=== PATIENT | female | born 1930 | race Two or more races ===

== ENCOUNTER 2016-05-05 16:08 | Inpatient (IN) | payer MEDICARE ==
[~2016-05-05] VITALS: Ht 157.5 cm; Wt 43.1 kg
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
--- NOTE | 2016-05-05 16:15 | NUR ---
URINE SAMPLE COLLECTED VIA STREIGHT IN/OUT MENDOZA CATHETER. PT TOLERATED PROCEDURE WELL. SAMPLE SEND TO LAB
[2016-05-05 16:35] LABS: APPEARANCE,URINE Clear (CLEAR); BILIRUBIN,URINE Negative (NEGATIVE); BLOOD, URINE Negative Ery/uL (NEGATIVE); COLOR,URINE Yellow (YELLOW); KETONES,URINE Negative (NEGATIVE); LEUKOCYTE ESTERASE ,URINE Negative (NEGATIVE); NITRITE, URINE Positive (NEGATIVE); PROTEIN,URINE Negative (NEGATIVE); UGLUCOSE Negative (NEGATIVE); UROBILINOGEN,URINE 0.2 EU/dL (0.2)
[2016-05-05] MEDS ORDERED: CEPH-569 PO (16:46)
--- NOTE | 2016-05-05 16:47 | NUR ---
CALLED NURSING SUP. FOR GPS BED
[2016-05-05 16:49] LABS: ADD URINE CULTURE NO; BACTERIA,URINE Rare /HPF (None Seen); RBC,URINE 0-2 /HPF (0-2); WBC,URINE 0-2 /HPF (0-3)
[2016-05-05 16:50] LABS: SQUAMOUS EPITHELIAL CELL,UR Rare /HPF (None Seen)
[2016-05-05] MEDS ORDERED: NITROFURANTOIN/NITROFURAN MAC 100 MG CAPSULE PO ONE (17:00)
[2016-05-05] MEDS ORDERED: NITROFURANTOIN/NITROFURAN MAC 100 MG CAPSULE ONE (17:12)
--- NOTE | 2016-05-05 18:45 | NUR ---
RN-CO: PAGED DR SAENZ TO OBTAIN ADMITTING ORDERS, AWAITING TO CALL BACK.
[2016-05-05 20:00] VITALS: BP 150/73
[2016-05-05] MEDS ORDERED: MAGNESIUM HYDROXIDE 30 ML UDC PO PRN (20:00)
[2016-05-05] MEDS ORDERED: MAG HYDROX/AL HYDROX/SIMETH 30 ML UDC PO PRN (20:00)
[2016-05-05] MEDS ORDERED: ACETAMINOPHEN 325 MG TABLET PO PRN (20:00)
[2016-05-05] MEDS ORDERED: ZOLPIDEM TARTRATE 5 MG TABLET PO PRN (20:00)
[2016-05-05] MEDS ORDERED: LORAZEPAM 0.5 MG TABLET PO PRN (20:00)
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
[2016-05-06 07:49] VITALS: BP 148/80
[2016-05-06 08:00] LABS: BASOPHILS % (AUTO) 0.4 % (0.0-2.0); EOSINOPHILS # (AUTO) 0.2 /CMM (0.0-0.7); EOSINOPHILS % (AUTO) 1.9 % (0.0-6.0); HEMATOCRIT 41 % (33-45); HEMOGLOBIN 13.6 g/dL (11.5-14.8); LYMPHOCYTES # (AUTO) 1.2 /CMM (0.8-4.8); LYMPHOCYTES % (AUTO) 11.3 % (20.0-44.0); MEAN CORPUSCULAR HEMOGLOBIN 31 PG (26.0-33.0); MEAN CORPUSCULAR HGB CONC 33 g/dl (31.0-36.0); MEAN CORPUSCULAR VOLUME 93 fL (82-100); MONOCYTES # (AUTO) 0.6 /CMM (0.1-1.30); MONOCYTES % (AUTO) 6.3 % (2.0-12.0); NEUTROPHILS # (AUTO) 8.3 /CMM (1.8-8.9); NEUTROPHILS % (AUTO) 80.1 % (43.0-81.0); PLATELET COUNT (AUTO) 245 /CMM (150-450); RDW COEFFICIENT OF VARIATION 14.3 (11.5-15.0); RED BLOOD CELL COUNT(AUTO) 4.44 MIL/uL (4.0-5.2); WHITE BLOOD COUNT (AUTO) 10.3 K/uL (4.3-11.0)
[2016-05-06 08:04] LABS: ALBUMIN 2.9 g/dL (3.4-5.0); BILIRUBIN,TOTAL 0.7 mg/dL (0.2-1.0); CREATININE 0.6 mg/dL (0.6-1.3); POTASSIUM 4.5 mmol/L (3.5-5.1); TOTAL PROTEIN, SERUM 7.6 g/dL (6.4-8.2)
[2016-05-06 09:54] LABS: CHOLESTEROL 144 mg/dL (<200); HDL CHOLESTEROL 48 mg/dL (40-60); LDL 86 mg/dL (0-99); TRIGLYCERIDES 81 mg/dL (30-150)
[2016-05-06 16:00] VITALS: BP 149/71
--- NOTE | 2016-05-06 17:16 | NUR ---
GPS RN: PATIENT WITH LEFT SECOND TOE WOUND. DR. GUERRA MADE AWARE WITH NEW ORDER FOR PODIATRY CONSULT. DR. PACKER NOTIFIED
[2016-05-06 20:00] VITALS: BP 128/53
[2016-05-06] MEDS: QUETIAPINE FUMARATE 25 MG TABLET PO SCH (21:09)
[2016-05-07] MEDS ORDERED: SULFAMETH/TRIMETH 800/160 MG 1 UDTAB TABLET PO SCH (09:00)
[2016-05-07 10:30] VITALS: BP 128/78
[2016-05-07] MEDS: GENTAMICIN 0.1% OINT 15 GM TUBE TP SCH ×2 (11:01→17:21)
[2016-05-07] MEDS: Z GUARD REMEDY 2 OZ OINT TP SCH (11:01)
[2016-05-07] MEDS: CHLORHEXIDINE GLUCONATE 4% 118 ML BOTTLE TP SCH (11:01)
[2016-05-07] MEDS: SULFAMETH/TRIMETH 800/160 MG 1 UDTAB TABLET PO SCH ×2 (11:13→21:44)
[2016-05-07 15:48] VITALS: BP 132/74
[2016-05-07 20:26] VITALS: BP 145/95
[2016-05-07] MEDS: QUETIAPINE FUMARATE 25 MG TABLET PO SCH (21:44)
[2016-05-08 08:00] VITALS: BP 140/68
[2016-05-08] MEDS: GENTAMICIN 0.1% OINT 15 GM TUBE TP SCH ×2 (08:13→16:32)
[2016-05-08] MEDS: CHLORHEXIDINE GLUCONATE 4% 118 ML BOTTLE TP SCH (08:13)
[2016-05-08] MEDS: Z GUARD REMEDY 2 OZ OINT TP SCH ×2 (08:13→21:50)
[2016-05-08] MEDS: SULFAMETH/TRIMETH 800/160 MG 1 UDTAB TABLET PO SCH ×2 (08:13→21:47)
--- NOTE | 2016-05-08 09:23 | NUR ---
WOUND CARE CONSULT: PATIENT SEEN AND SKIN ASSESSMENT DONE. PATIENT ABLE TO TURN AND REPOSITION HOWEVER NEEDS PROMPTING AND ASSIST, INCONTINENT, JAZ 14. SEE TODAY'S SKIN ASSESSMENT IN PCS ALONG WITH RECOMMENDATIONS. RECOMMEND MOISTURE PROTECTION WITH Z GUARD ORDERED, PRESSURE PREVENTION MEASURES, TURN AND REPOSITION EVERY 2 HRS PATIENT CONDITION PERMITS, OFFLOAD BOTH HEELS. ALL DISCUSSED WITH NURSING STAFF. MD IN AGREEMENT WITH PLAN OF CARE. Addendum: 05/08/16 at 0928 by DIANA RODRIGUEZ WNDNU Amended: Links added.
[2016-05-08] MEDS ORDERED: Z GUARD REMEDY 2 OZ OINT TP PRN (09:30)
--- NOTE | 2016-05-08 15:09 | NUR ---
Initial Discharge Plan: Patient lives at home with her daughter at [address] [place] [id number]/ . SW spoke with patient's daughter Maru Jones who confirmed that patient lives with her. Patient's daughter was looking for possible placement. SW will follow-up with MD, family, and patient regarding most appropriate discharge plan. SW will help form a safe and proper discharge.
[2016-05-08 16:00] VITALS: BP 156/53
--- NOTE | 2016-05-08 19:30 | NUR ---
GPS RN NOTE, RECEIVED PATIENT AWAKE AND IN BED, NO S/S OR COMPLAINTS OF PAIN AT THIS TIME. PATIENT IS DISPLAYING NO S/S OF APPARENT DISTRESS AT THIS TIME. PATIENT BREATHING IS UNLABORED WITH EQUAL RISE AND FALL OF THE CHEST. PATIENT IS ALERT AND ORIENTED X 1 ON ROOM AIR WITH A SPO2 95%. PATIENT COMPLIANT WITH MEDICATIONS, COOPERATIVE, ANXIOUS, CONFUSED AT TIMES, AND NEEDS REORIENTATION. PATIENT DENIES SUICIDE AND HOMICIDAL IDEATIONS AT THIS TIME. PATIENT ASSISTED WITH TURNING AND REPOSITIONING Q2HR AND PRN FOR COMFORT AND CIRCULATION. PATIENT HAS NO NEEDS AT THIS TIME. PATIENT REFUSED SKIN ASSESSMENT TODAY. PATIENT EDUCATED ON THE USE OF THE CALL GRIJALVA. PATIENT BED SIDE RAILS UP X2 FOR SAFETY, BED IS LOCKED AND LOW WILL CONTINUE TO MONITOR AND MAINTAIN SAFETY.
[2016-05-08 20:00] VITALS: BP 156/60
[2016-05-08] MEDS: QUETIAPINE FUMARATE 25 MG TABLET PO SCH (21:47)
[2016-05-09 08:00] VITALS: BP 149/76
[2016-05-09] MEDS: SULFAMETH/TRIMETH 800/160 MG 1 UDTAB TABLET PO SCH ×2 (09:33→21:25)
[2016-05-09] MEDS: Z GUARD REMEDY 2 OZ OINT TP SCH ×2 (09:34→21:25)
[2016-05-09] MEDS: CHLORHEXIDINE GLUCONATE 4% 118 ML BOTTLE TP SCH (09:34)
[2016-05-09] MEDS: GENTAMICIN 0.1% OINT 15 GM TUBE TP SCH ×2 (09:34→17:32)
--- NOTE | 2016-05-09 11:25 | NUR ---
Needleworker faxed clinicals to Margi (fax:[phone]/ from [facility] for review. SW will follow- up with Margi.
--- NOTE | 2016-05-09 15:51 | NUR ---
Psychosocial assessment was reviewed and I concur with the information provided. No changes are necessary. Maritza Georges, [facility] [id number] Addendum: 05/09/16 at 1551 by MARITZA GEORGES SW Amended: Links added.
[2016-05-09 16:00] VITALS: BP 141/72
--- NOTE | 2016-05-09 19:30 | NUR ---
GPS RN NOTE, RECEIVED PATIENT AWAKE AND IN BED, NO S/S OR COMPLAINTS OF PAIN AT THIS TIME. PATIENT IS DISPLAYING NO S/S OF APPARENT DISTRESS AT THIS TIME. PATIENT BREATHING IS UNLABORED WITH EQUAL RISE AND FALL OF THE CHEST. PATIENT IS ALERT AND ORIENTED X 1 ON ROOM AIR WITH A SPO2 94%. PATIENT COMPLIANT WITH MEDICATIONS WHEN CRUSHED, COOPERATIVE, ANXIOUS, CONFUSED AT TIMES, AND NEEDS REORIENTATION. PATIENT DENIES SUICIDE AND HOMICIDAL IDEATIONS AT THIS TIME. PATIENT ASSISTED WITH TURNING AND REPOSITIONING Q2HR AND PRN FOR COMFORT AND CIRCULATION. PATIENT HAS NO NEEDS AT THIS TIME. PATIENT REFUSED SKIN ASSESSMENT TODAY. PATIENT EDUCATED ON THE USE OF THE CALL GRIJALVA. PATIENT BED SIDE RAILS UP X2 FOR SAFETY, BED IS LOCKED AND LOW WILL CONTINUE TO MONITOR AND MAINTAIN SAFETY.
[2016-05-09 20:22] VITALS: BP 111/58
[2016-05-09] MEDS: QUETIAPINE FUMARATE 25 MG TABLET PO SCH (21:25)
[2016-05-10 08:49] VITALS: BP 120/69
[2016-05-10] MEDS: GENTAMICIN 0.1% OINT 15 GM TUBE TP SCH ×2 (09:00→17:00)
[2016-05-10] MEDS: CHLORHEXIDINE GLUCONATE 4% 118 ML BOTTLE TP SCH (09:00)
[2016-05-10] MEDS: SULFAMETH/TRIMETH 800/160 MG 1 UDTAB TABLET PO SCH ×2 (09:49→22:18)
[2016-05-10] MEDS: Z GUARD REMEDY 2 OZ OINT TP SCH ×2 (10:14→22:19)
--- NOTE | 2016-05-10 13:28 | NUR ---
KENY spoke with patient's daughter Maru Jones who requested SW try placing her mother at [facility] [address] [place] [phone]. . KENY faxed referral to Lacy from the facility. KENY will follow- up with Lacy.
--- NOTE | 2016-05-10 13:51 | NUR ---
KENY spoke with Bell from [facility] who stated that they do not have any female beds available and cannot accept the patient at this time.
--- NOTE | 2016-05-10 15:33 | NUR ---
SW spoke to patient's daughter Maru Jones who agreed to place patient at [facility] [address] [facility] [place] [address] .
[2016-05-10 15:58] VITALS: BP 144/72
--- NOTE | 2016-05-10 20:00 | NUR ---
PATIENT IN BED, COMFORTABLE, CALM, NO SOB, NO DISTRESS, DENIES ANY PAIN AT THIS TIME, COOPERATIVE, ANSWERS SIMPLE QUESTIONS, REDIRECTABLE, MADE SAFE AND COMFORTABLE, WILL CONTINUE TO MONITOR.
[2016-05-10 20:51] VITALS: BP 144/73
[2016-05-10 22:00] VITALS: BP 144/73
[2016-05-10] MEDS ORDERED: QUETIAPINE FUMARATE 25 MG TABLET PO SCH (22:00)
[2016-05-10] MEDS ORDERED: DONEPEZIL 5 MG TABLET PO SCH (22:00)
--- NOTE | 2016-05-11 06:30 | NUR ---
PATIENT RESTING COMFORTABLY IN BED, NO SOB, NO DISTRESS, NO CHANGE OF CONDITION DURING SHIFT, WOUND CARE AND DRESSING CHANGE PERFORMED. ALL DUE MEDICATIONS GIVEN, MADE SAFE AND COMFORTABLE
[2016-05-11 08:00] VITALS: BP 119/61
[2016-05-11] MEDS: SULFAMETH/TRIMETH 800/160 MG 1 UDTAB TABLET PO SCH (08:35)
[2016-05-11] MEDS: GENTAMICIN 0.1% OINT 15 GM TUBE TP SCH ×2 (08:37→17:05)
[2016-05-11] MEDS: CHLORHEXIDINE GLUCONATE 4% 118 ML BOTTLE TP SCH (08:37)
[2016-05-11] MEDS: Z GUARD REMEDY 2 OZ OINT TP SCH (08:37)
--- NOTE | 2016-05-11 08:38 | NUR ---
Pt. with an order to D/C hold and D/C to [facility]. Without distress, denies suicidal and homicidal. To follow up with psych and medical doctors.
[2016-05-11 16:00] VITALS: BP 152/72
--- NOTE | 2016-05-11 18:55 | NUR ---
GPS RN: PATIENT DISCHARGED TO [facility]. PATIENT'S CONDITION IS STABLE FOR DISCHARGE, VS STABLE, NO VERBALIZATIONS OF SI/HI AT THE TIME OF DISCHARGE. NO BEHAVIORAL ISSUES. ALL BELONGINGS RETURNED TO THE PATIENT. PROPERTY MANAGEMENT FORM SIGNED. PICTURES TAKEN AND DOCUMENTED IN THE CHART. MEDICATIONS RECONCILED AND THE COPY OF THE CURRENT MED LIST ATTACHED WITH THE DISCHARGE PAPERWORK. REPORT GIVEN TO LANETTE ANGEL AT THE FACILITY. PATIENT GOT PICKED UP BY THE FACILITY TRANSPORTATION. PATIENT LEFT THE UNIT IN THE WHEELCHAIR IN STABLE CONDITION ACCOMPANIED BY ISAURO SORIANO (CANNONEER) AND 2 STAFF MEMBERS.
== END 2016-05-11 18:55 | DRG 876 ==
LOC: ER 16:10 → GPS 17:17
PROVIDERS: ADMIT Psychiatry & Neurology Psychiatry
PROC: 0QBR0ZZ Excision of Left Toe Phalanx, Open Approach (ICD-10-PCS; principal; 2016-05-09)
DX: F29 Unspecified psychosis not due to a substance or known physiological condition (principal); M86.8X7 Other osteomyelitis, ankle and foot; F03.91 Unspecified dementia, unspecified severity, with behavioral disturbance; L03.115 Cellulitis of right lower limb; L03.116 Cellulitis of left lower limb; D68.59 Other primary thrombophilia; L97.529 Non-pressure chronic ulcer of other part of left foot with unspecified severity; I10 Essential (primary) hypertension
CPT/HCPCS: 36415; 73620-TC; 80053-TC; 80061-TC; 81000-TC; 85025-TC; 87081-TC; 87086-TC; A4606; A6402; Z7610